=== PATIENT | male | born 1960 | race Caucasian/White ===

== ENCOUNTER 2021-02-03 00:01 | Inpatient (IN) ==
[2021-02-03 00:43] LABS: Basophils % 0.3 %; Eosinophils % 0.3 %; Hematocrit 47.4 % (37.5-50.1); Hemoglobin 13.9 g/dL (12.9-16.9); Immature Granulocytes % 0.5 % (0-4); Lymphocytes # 1.1 K/mcL (0.6-4.6); Mean Corpuscular HGB Conc 29.3 g/dL (31.6-35.5); Mean Corpuscular Hemoglobin 26.2 pg (28.0-33.3); Mean Corpuscular Volume 89.4 fL (83.0-100.0); Mean Platelet Volume 10.1 fL (9.4-12.4); Monocytes # 0.7 K/mcL (0.0-1.3); Monocytes % 11.3 %; Neutrophils # 4.6 K/mcL (1.6-8.9); Platelet Count 228 K/mcL (140-400); Red Cell Distribution Width 18.1 % (11.5-14.5); Segmented Neutrophils % 70.6 %; White Blood Count 6.5 K/mcL (4.3-11.1)
[2021-02-03 00:53] LABS: BUN/Creatinine Ratio 10 (6-26); Blood Urea Nitrogen 12 mg/dL (6-20); Calcium 8.7 mg/dL (8.6-10.3); Carbon Dioxide 35 mEq/L (23-29); Chloride 93 mEq/L (98-107); Glucose 126 mg/dL (70-105); Osmolality,Calculated 281 (280-300); Potassium 3.5 mEq/L (3.5-5.1); Sodium 135 mEq/L (136-145); eGFR For African Americans > 60 (> 60); eGFR For Non-African Americans > 60 (> 60)
[2021-02-03 00:57] LABS: Troponin I 0.06 ng/mL (< 0.04)
[2021-02-03 00:59] LABS: VBG HCO3 37 mEq/L (21-27); VBG PCO2 92 mmHg (41-51); VBG PH 7.22 pH Units (7.32-7.42); VBG PO2 246 mmHg (25-50)
[2021-02-03 02:48] LABS: VBG HCO3 37 mEq/L (21-27); VBG PCO2 87 mmHg (41-51); VBG PH 7.24 pH Units (7.32-7.42); VBG PO2 107 mmHg (25-50)
[2021-02-03] MEDS ORDERED: Isovue-370 500 ML BOTTLE IVP ONE (04:09)
[2021-02-03] MEDS ORDERED: *HR* Heparin 5,000 UNIT/ML VIAL IVP PRN ×2 (06:20)
[2021-02-03] MEDS ORDERED: *HR* Heparin 5,000 UNIT/ML VIAL IVP ONE (06:20)
[2021-02-03] MEDS: Heparin 25,000UNIT/250ML 1/2NS 25,000 UNIT/250 ML IV.SOLN IVC SCH (06:39)
[2021-02-03 06:43] LABS: White Blood Count 8.7 K/mcL (4.3-11.1)
[2021-02-03 06:44] LABS: Hematocrit 50.3 % (37.5-50.1); Hemoglobin 14.6 g/dL (12.9-16.9); Mean Corpuscular Hemoglobin 26.6 pg (28.0-33.3); Mean Corpuscular Volume 91.6 fL (83.0-100.0); Mean Platelet Volume 9.7 fL (9.4-12.4); Platelet Count 202 K/mcL (140-400); Red Blood Count 5.49 M/mcL (4.19-5.50); Red Cell Distribution Width 18.6 % (11.5-14.5)
[2021-02-03 06:51] LABS: Heparin anti-factor XA UFH 0.04 IU/mL (0.30-0.70); INR 1.2; Prothrombin Time 14.1 Seconds (9.4-12.1)
[2021-02-03 06:52] LABS: VBG HCO3 38 mEq/L (21-27); VBG PCO2 112 mmHg (41-51); VBG PH 7.14 pH Units (7.32-7.42); VBG PO2 49 mmHg (25-50)
[2021-02-03] MEDS ORDERED: Naloxone 0.4 MG/ML INJ IVP PRN (07:25)
[2021-02-03] MEDS ORDERED: Ipratropium/Albuterol Neb 3 ML IH PRN (07:28)
[2021-02-03 07:29] LABS: Adenovirus Not Detected (Not Detect); Bordetella Pertussis Not Detected (Not Detect); Chlamydophila pneumoniae Not Detected (Not Detect); Coronavirus 229E Not Detected (Not Detect); Coronavirus HKU1 Not Detected (Not Detect); Coronavirus NL63 Not Detected (Not Detect); Coronavirus OC43 Not Detected (Not Detect); Human Metapneumovirus Not Detected (Not Detect); Human Rhinovirus/Enterovirus DETECTED (Not Detect); Influenza A Subtype 2009 H1 Not Detected (Not Detect); Influenza B Not Detected (Not Detect); Mycoplasma pneumoniae Not Detected (Not Detect); Parainfluenza Virus 1 Not Detected (Not Detect); Parainfluenza Virus 2 Not Detected (Not Detect); Parainfluenza Virus 3 Not Detected (Not Detect); Parainfluenza Virus 4 Not Detected (Not Detect); Respiratory Syncytial Virus Not Detected (Not Detect); SARS-CoV-2 Not Detected (Not Detect)
[2021-02-03 07:44] LABS: ABG Base Excess 6 mEq/L (-2 to 3); ABG HCO3 42 mEq/L (21-27); ABG Oxygen Saturation 98 % (95-98); ABG PCO2 127 mmHg (35-45); ABG PH 7.12 pH Units (7.32-7.45); ABG PO2 159 mmHg (85-104); ABG TCO2 46 mEq/L (20-26); Blood Gas Pressure Support 16 cm H2O
[2021-02-03] MEDS ORDERED: Nitroglycerin 0.4 MG TAB.SUBL SL PRN (08:23)
[2021-02-03] MEDS ORDERED: Furosemide 40 MG/4 ML VIAL IVP ONE (08:24)
[2021-02-03] MEDS ORDERED: methylPREDNISolone 125 MG/2 ML VIAL IVP ONE (08:24)
[2021-02-03] MEDS ORDERED: Perflutren Lipid Microsphere 1.3 ML in 0.9 % Sodium Chloride 8.7 ML IVP PRN (08:30)
[2021-02-03] MEDS: DilTIAZem 50 MG/50 ML IV.SOLN IVC SCH ×2 (08:54→09:21)
[2021-02-03] MEDS: Metoprolol XL (24 HR) Succ 50 MG TAB.ER.24H PO SCH (08:55)
[2021-02-03] MEDS ORDERED: *HR* Dextrose 50 % in Water (Vial) 50 ML VIAL IVP PRN (09:15)
[2021-02-03] MEDS ORDERED: D5% in Water 1,000 ML IVC PRN (09:15)
[2021-02-03] MEDS ORDERED: Dextrose Gel 15 GM/37.5 ML TUBE PO PRN ×2 (09:15)
[2021-02-03 09:21] LABS: ABG Base Excess 9 mEq/L (-2 to 3); ABG HCO3 41 mEq/L (21-27); ABG Oxygen Saturation 100 % (95-98); ABG PCO2 87 mmHg (35-45); ABG PH 7.28 pH Units (7.32-7.45); ABG PO2 313 mmHg (85-104); ABG TCO2 43 mEq/L (20-26); Blood Gas VT 500 cc
[2021-02-03] MEDS ORDERED: Lidocaine Viscous Oral Soln 15 ML SOLUTION ONE (09:41)
[2021-02-03] MEDS: Budesonide/Formoterol 160/4.5 1 PUFF INH IH SCH ×2 (11:47→23:04)
[2021-02-03] MEDS: Insulin LISPRO 300 UNITS/3 ML VIAL SUBQ SCH ×3 (12:52→21:00)
[2021-02-03] MEDS: Azithromycin 250 MG TABLET PO SCH (12:53)
[2021-02-03] MEDS: predniSONE 20 MG TABLET PO SCH (17:49)
[2021-02-04] MEDS: Heparin 25,000UNIT/250ML 1/2NS 25,000 UNIT/250 ML IV.SOLN IVC SCH ×2 (00:48→17:59)
[2021-02-04 01:38] LABS: Basophils % 0.1 %; Hematocrit 46.1 % (37.5-50.1); Hemoglobin 13.8 g/dL (12.9-16.9); Immature Granulocytes % 0.4 % (0-4); Mean Corpuscular HGB Conc 29.9 g/dL (31.6-35.5); Mean Corpuscular Hemoglobin 26.9 pg (28.0-33.3); Mean Corpuscular Volume 89.9 fL (83.0-100.0); Monocytes # 0.6 K/mcL (0.0-1.3); Monocytes % 5.8 %; Neutrophils # 8.9 K/mcL (1.6-8.9); Platelet Count 216 K/mcL (140-400); Red Blood Count 5.13 M/mcL (4.19-5.50); Segmented Neutrophils % 84.7 %; White Blood Count 10.5 K/mcL (4.3-11.1)
[2021-02-04 02:00] LABS: BUN/Creatinine Ratio 23 (6-26); Blood Urea Nitrogen 25 mg/dL (6-20); Calcium 8.8 mg/dL (8.6-10.3); Carbon Dioxide 36 mEq/L (23-29); Chloride 92 mEq/L (98-107); Glucose 132 mg/dL (70-105); Osmolality,Calculated 284 (280-300); Potassium 4.2 mEq/L (3.5-5.1); Sodium 134 mEq/L (136-145); eGFR For African Americans > 60 (> 60); eGFR For Non-African Americans > 60 (> 60)
[2021-02-04] MEDS: Metoprolol XL (24 HR) Succ 50 MG TAB.ER.24H PO SCH (07:33)
[2021-02-04] MEDS: predniSONE 20 MG TABLET PO SCH (07:33)
[2021-02-04] MEDS: Budesonide/Formoterol 160/4.5 1 PUFF INH IH SCH ×2 (08:00→20:06)
[2021-02-04] MEDS: ALPRAZolam 1 MG TABLET PO PRN ×2 (08:16→21:41)
[2021-02-04] MEDS: Insulin LISPRO 300 UNITS/3 ML VIAL SUBQ SCH ×4 (08:16→21:02)
[2021-02-04] MEDS: Furosemide 20 MG/2 ML VIAL IVP SCH ×2 (10:06→19:40)
[2021-02-04] MEDS: Azithromycin 250 MG TABLET PO SCH (12:23)
[2021-02-04] MEDS ORDERED: *HR* Heparin 5,000 UNIT/ML VIAL IVP PRN ×2 (16:02)
[2021-02-04] MEDS ORDERED: *HR* Rivaroxaban 10 MG TABLET PO SCH (17:00)
[2021-02-04] MEDS: MethylPREDNISolone 40 MG/ML VIAL IVP SCH ×2 (17:36→22:55)
[2021-02-04 19:04] LABS: Hemoglobin 13.4 g/dL (12.9-16.9); Mean Corpuscular HGB Conc 29.8 g/dL (31.6-35.5); Mean Corpuscular Hemoglobin 26.3 pg (28.0-33.3); Mean Corpuscular Volume 88.2 fL (83.0-100.0); Mean Platelet Volume 10.4 fL (9.4-12.4); Platelet Count 201 K/mcL (140-400); Red Cell Distribution Width 18.2 % (11.5-14.5); White Blood Count 8.6 K/mcL (4.3-11.1)
[2021-02-04 19:10] LABS: Heparin anti-factor XA UFH 0.19 IU/mL (0.30-0.70)
[2021-02-04 19:11] LABS: INR 1.2; Prothrombin Time 13.6 Seconds (9.4-12.1)
[2021-02-04] MEDS: Metoprolol 100 MG TABLET PO SCH (19:40)
[2021-02-05 01:45] LABS: Basophils % 0.1 %; Hematocrit 45.5 % (37.5-50.1); Hemoglobin 13.4 g/dL (12.9-16.9); Immature Granulocytes % 0.7 % (0-4); Lymphocytes # 0.8 K/mcL (0.6-4.6); Lymphocytes % 11.5 %; Mean Corpuscular HGB Conc 29.5 g/dL (31.6-35.5); Mean Corpuscular Hemoglobin 26.2 pg (28.0-33.3); Mean Corpuscular Volume 88.9 fL (83.0-100.0); Mean Platelet Volume 10.2 fL (9.4-12.4); Monocytes # 0.3 K/mcL (0.0-1.3); Monocytes % 4.2 %; Platelet Count 221 K/mcL (140-400); Red Blood Count 5.12 M/mcL (4.19-5.50); Red Cell Distribution Width 18.2 % (11.5-14.5); Segmented Neutrophils % 83.5 %; White Blood Count 7.2 K/mcL (4.3-11.1)
[2021-02-05 01:50] LABS: BUN/Creatinine Ratio 41 (6-26); Blood Urea Nitrogen 37 mg/dL (6-20); Calcium 9.2 mg/dL (8.6-10.3); Carbon Dioxide 37 mEq/L (23-29); Chloride 91 mEq/L (98-107); Glucose 128 mg/dL (70-105); Magnesium 1.9 mg/dL (1.6-2.6); Osmolality,Calculated 286 (280-300); Phosphorous 2.8 mg/dL (2.7-4.5); Potassium 4.2 mEq/L (3.5-5.1); Sodium 133 mEq/L (136-145); eGFR For African Americans > 60 (> 60); eGFR For Non-African Americans > 60 (> 60)
[2021-02-05] MEDS: Budesonide/Formoterol 160/4.5 1 PUFF INH IH SCH ×2 (07:38→20:04)
[2021-02-05] MEDS: Metoprolol 100 MG TABLET PO SCH (08:05)
[2021-02-05] MEDS: Furosemide 20 MG/2 ML VIAL IVP SCH ×2 (08:05→21:18)
[2021-02-05] MEDS: lisinopriL 20 MG TABLET PO SCH (08:05)
[2021-02-05] MEDS: amLODIPine 5 MG TABLET PO SCH (08:05)
[2021-02-05] MEDS: Insulin LISPRO 300 UNITS/3 ML VIAL SUBQ SCH ×4 (08:06→21:23)
[2021-02-05] MEDS: MethylPREDNISolone 40 MG/ML VIAL IVP SCH ×2 (08:06→17:20)
[2021-02-05] MEDS: ALPRAZolam 1 MG TABLET PO PRN ×2 (08:16→22:03)
[2021-02-05 08:52] LABS: ABG Base Excess 11 mEq/L (-2 to 3); ABG HCO3 41 mEq/L (21-27); ABG Oxygen Saturation 86 % (95-98); ABG PCO2 75 mmHg (35-45); ABG PH 7.35 pH Units (7.32-7.45); ABG PO2 58 mmHg (85-104); ABG TCO2 44 mEq/L (20-26)
[2021-02-05] MEDS: Azithromycin 250 MG TABLET PO SCH (10:18)
[2021-02-05] MEDS: Heparin 25,000UNIT/250ML 1/2NS 25,000 UNIT/250 ML IV.SOLN IVC SCH (10:18)
[2021-02-05] MEDS: Metoprolol XL (24 HR) Succ 50 MG TAB.ER.24H PO SCH ×2 (10:36→21:18)
[2021-02-05] MEDS: Aspirin Enteric Coated 81 MG Tablet PO SCH (12:26)
[2021-02-05 13:10] LABS: Albumin 3.9 g/dL (3.5-5.7); Albumin/Globulin Ratio 1.1 (1.1-2.2); Bilirubin,Direct 0.2 mg/dL (0.0-0.2); Bilirubin,Indirect 0.6 mg/dL (0.0-1.0); Bilirubin,Total 0.8 mg/dL (0.3-1.0); Globulin 3.6 g/dL (2.4-3.5); Total Protein 7.5 g/dL (6.4-8.9)
[2021-02-05] MEDS ORDERED: Haloperidol Lactate 5 MG/ML VIAL IVP ONE (15:52)
[2021-02-05 16:13] LABS: ABG Base Excess 11 mEq/L (-2 to 3); ABG HCO3 40 mEq/L (21-27); ABG Oxygen Saturation 90 % (95-98); ABG PCO2 69 mmHg (35-45); ABG PH 7.37 pH Units (7.32-7.45); ABG PO2 63 mmHg (85-104); ABG TCO2 42 mEq/L (20-26)
[2021-02-05] MEDS ORDERED: QUEtiapine Fumarate 25 MG TABLET PO ONE (23:40)
[2021-02-06 02:05] LABS: BUN/Creatinine Ratio 43 (6-26); Blood Urea Nitrogen 34 mg/dL (6-20); Calcium 9.1 mg/dL (8.6-10.3); Carbon Dioxide 39 mEq/L (23-29); Chloride 94 mEq/L (98-107); Glucose 122 mg/dL (70-105); Magnesium 1.6 mg/dL (1.6-2.6); Osmolality,Calculated 297 (280-300); Phosphorous 2.1 mg/dL (2.7-4.5); Sodium 139 mEq/L (136-145); eGFR For African Americans > 60 (> 60); eGFR For Non-African Americans > 60 (> 60)
[2021-02-06] MEDS ORDERED: Haloperidol Lactate 5 MG/ML VIAL IVP ONE (02:36)
[2021-02-06] MEDS ORDERED: Haloperidol Lactate 5 MG/ML VIAL IM ONE (02:48)
[2021-02-06] MEDS: Heparin 25,000UNIT/250ML 1/2NS 25,000 UNIT/250 ML IV.SOLN IVC SCH ×2 (04:47→20:00)
[2021-02-06] MEDS: Metoprolol XL (24 HR) Succ 50 MG TAB.ER.24H PO SCH ×2 (06:33→20:26)
[2021-02-06] MEDS: MethylPREDNISolone 40 MG/ML VIAL IVP SCH ×2 (06:33→18:26)
[2021-02-06] MEDS: Insulin LISPRO 300 UNITS/3 ML VIAL SUBQ SCH ×4 (07:20→20:27)
[2021-02-06] MEDS: Budesonide/Formoterol 160/4.5 1 PUFF INH IH SCH ×2 (07:40→20:21)
[2021-02-06] MEDS ORDERED: *HR* Metoprolol 5 MG/5 ML VIAL IVP ONE (07:42)
[2021-02-06] MEDS: Furosemide 20 MG/2 ML VIAL IVP SCH ×2 (07:51→20:25)
[2021-02-06] MEDS: amLODIPine 5 MG TABLET PO SCH (07:52)
[2021-02-06] MEDS: lisinopriL 20 MG TABLET PO SCH (07:52)
[2021-02-06] MEDS: Aspirin Enteric Coated 81 MG Tablet PO SCH (07:52)
[2021-02-06] MEDS ORDERED: 0.9 % Sodium Chloride 500 ML IV ONE (08:06)
[2021-02-06 08:34] LABS: Thyroid Stimulating Hormone 1.195 mcIU/mL (0.340-5.600)
[2021-02-06] MEDS ORDERED: ALPRAZolam 1 MG TABLET PO SCH (09:00)
[2021-02-06] MEDS: DilTIAZem 50 MG/50 ML IV.SOLN IVC SCH ×3 (09:24→18:00)
[2021-02-06] MEDS: Azithromycin 250 MG TABLET PO SCH (12:20)
[2021-02-06] MEDS ORDERED: *HR* LORazepam 2 MG/ML VIAL IVP PRN ×3 (12:35)
[2021-02-06] MEDS: DilTIAZem CD (24hr) 120 MG CAP.ER.24H PO SCH (14:42)
[2021-02-06] MEDS: ALPRAZolam 1 MG TABLET PO SCH ×2 (14:42→20:26)
[2021-02-07 01:21] LABS: Hematocrit 47.8 % (37.5-50.1); Hemoglobin 14.8 g/dL (12.9-16.9); Mean Corpuscular Hemoglobin 26.7 pg (28.0-33.3); Mean Corpuscular Volume 86.1 fL (83.0-100.0); Mean Platelet Volume 10.3 fL (9.4-12.4); Platelet Count 242 K/mcL (140-400); Red Blood Count 5.55 M/mcL (4.19-5.50); Red Cell Distribution Width 18.5 % (11.5-14.5); White Blood Count 5.3 K/mcL (4.3-11.1)
[2021-02-07 01:40] LABS: BUN/Creatinine Ratio 37 (6-26); Blood Urea Nitrogen 29 mg/dL (6-20); Calcium 9.2 mg/dL (8.6-10.3); Carbon Dioxide 39 mEq/L (23-29); Chloride 92 mEq/L (98-107); Glucose 217 mg/dL (70-105); Osmolality,Calculated 296 (280-300); Phosphorous 2.5 mg/dL (2.7-4.5); Potassium 3.7 mEq/L (3.5-5.1); Sodium 137 mEq/L (136-145); eGFR For African Americans > 60 (> 60); eGFR For Non-African Americans > 60 (> 60)
[2021-02-07] MEDS ORDERED: *HR* Metoprolol 5 MG/5 ML VIAL IVP ONE (03:07)
[2021-02-07] MEDS: MethylPREDNISolone 40 MG/ML VIAL IVP SCH ×2 (06:27→19:07)
[2021-02-07] MEDS: Budesonide/Formoterol 160/4.5 1 PUFF INH IH SCH ×2 (07:33→19:53)
[2021-02-07] MEDS: Furosemide 20 MG/2 ML VIAL IVP SCH ×2 (08:38→19:37)
[2021-02-07] MEDS: hydrALAZINE 25 MG TABLET PO SCH ×3 (08:39→23:52)
[2021-02-07] MEDS: Aspirin Enteric Coated 81 MG Tablet PO SCH (08:39)
[2021-02-07] MEDS: Metoprolol XL (24 HR) Succ 50 MG TAB.ER.24H PO SCH ×2 (08:40→19:37)
[2021-02-07] MEDS: ALPRAZolam 1 MG TABLET PO SCH ×3 (08:40→19:37)
[2021-02-07] MEDS: DilTIAZem CD (24hr) 120 MG CAP.ER.24H PO SCH (08:40)
[2021-02-07] MEDS: lisinopriL 20 MG TABLET PO SCH (08:40)
[2021-02-07] MEDS: amLODIPine 5 MG TABLET PO SCH (08:41)
[2021-02-07] MEDS: Insulin LISPRO 300 UNITS/3 ML VIAL SUBQ SCH ×4 (09:14→20:32)
[2021-02-07] MEDS ORDERED: Perflutren Lipid Microsphere 1.3 ML in 0.9 % Sodium Chloride 8.7 ML IVP PRN (09:53)
[2021-02-07] MEDS ORDERED: DilTIAZem CD (24hr) 240 MG CAP.ER.24H PO SCH (10:00)
[2021-02-07] MEDS ORDERED: DilTIAZem CD (24hr) 120 MG CAP.ER.24H PO ONE (10:30)
[2021-02-07] MEDS: Azithromycin 250 MG TABLET PO SCH (10:36)
[2021-02-07] MEDS: Heparin 25,000UNIT/250ML 1/2NS 25,000 UNIT/250 ML IV.SOLN IVC SCH (14:39)
[2021-02-08] MEDS: MethylPREDNISolone 40 MG/ML VIAL IVP SCH ×2 (05:22→17:41)
[2021-02-08 06:51] LABS: Hematocrit 53.1 % (37.5-50.1); Hemoglobin 16.3 g/dL (12.9-16.9); Mean Corpuscular HGB Conc 30.7 g/dL (31.6-35.5); Mean Corpuscular Hemoglobin 26.1 pg (28.0-33.3); Mean Platelet Volume 10.1 fL (9.4-12.4); Platelet Count 227 K/mcL (140-400); Red Blood Count 6.25 M/mcL (4.19-5.50); Red Cell Distribution Width 18.6 % (11.5-14.5); White Blood Count 7.1 K/mcL (4.3-11.1)
[2021-02-08] MEDS: Heparin 25,000UNIT/250ML 1/2NS 25,000 UNIT/250 ML IV.SOLN IVC SCH (07:29)
[2021-02-08 07:35] LABS: BUN/Creatinine Ratio 43 (6-26); Blood Urea Nitrogen 31 mg/dL (6-20); Calcium 9.4 mg/dL (8.6-10.3); Carbon Dioxide 40 mEq/L (23-29); Chloride 88 mEq/L (98-107); Glucose 141 mg/dL (70-105); Magnesium 1.7 mg/dL (1.6-2.6); Osmolality,Calculated 289 (280-300); Phosphorous 3.5 mg/dL (2.7-4.5); Potassium 3.4 mEq/L (3.5-5.1); Sodium 135 mEq/L (136-145); eGFR For African Americans > 60 (> 60); eGFR For Non-African Americans > 60 (> 60)
[2021-02-08] MEDS: Aspirin Enteric Coated 81 MG Tablet PO SCH (07:54)
[2021-02-08] MEDS: Metoprolol XL (24 HR) Succ 50 MG TAB.ER.24H PO SCH ×2 (07:54→19:57)
[2021-02-08] MEDS: lisinopriL 20 MG TABLET PO SCH (07:54)
[2021-02-08] MEDS: DilTIAZem CD (24hr) 240 MG CAP.ER.24H PO SCH (07:54)
[2021-02-08] MEDS: hydrALAZINE 25 MG TABLET PO SCH ×2 (07:55→16:04)
[2021-02-08] MEDS: Furosemide 20 MG/2 ML VIAL IVP SCH (07:55)
[2021-02-08] MEDS: ALPRAZolam 1 MG TABLET PO SCH ×3 (07:55→19:57)
[2021-02-08] MEDS: Insulin LISPRO 300 UNITS/3 ML VIAL SUBQ SCH ×4 (08:03→20:07)
[2021-02-08] MEDS: Budesonide/Formoterol 160/4.5 1 PUFF INH IH SCH ×2 (09:29→20:18)
[2021-02-08] MEDS: Apixaban 5 MG TABLET PO SCH ×2 (11:05→19:57)
[2021-02-08] MEDS: Azithromycin 250 MG TABLET PO SCH (11:05)
[2021-02-08] MEDS ORDERED: Metoprolol XL (24 HR) Succ 50 MG TAB.ER.24H PO ONE (12:35)
[2021-02-09] MEDS: hydrALAZINE 25 MG TABLET PO SCH ×3 (00:20→16:30)
[2021-02-09 01:58] LABS: Basophils % 0.5 %; Hematocrit 52.8 % (37.5-50.1); Hemoglobin 16.3 g/dL (12.9-16.9); Immature Granulocytes % 1.2 % (0-4); Lymphocytes # 1.1 K/mcL (0.6-4.6); Lymphocytes % 13.2 %; Mean Corpuscular HGB Conc 30.9 g/dL (31.6-35.5); Mean Corpuscular Hemoglobin 26.1 pg (28.0-33.3); Mean Corpuscular Volume 84.5 fL (83.0-100.0); Monocytes # 0.5 K/mcL (0.0-1.3); Monocytes % 6.3 %; Neutrophils # 6.4 K/mcL (1.6-8.9); Platelet Count 219 K/mcL (140-400); Red Blood Count 6.25 M/mcL (4.19-5.50); Red Cell Distribution Width 18.6 % (11.5-14.5); Segmented Neutrophils % 78.8 %; White Blood Count 8.1 K/mcL (4.3-11.1)
[2021-02-09 02:14] LABS: BUN/Creatinine Ratio 41 (6-26); Blood Urea Nitrogen 34 mg/dL (6-20); Calcium 8.9 mg/dL (8.6-10.3); Carbon Dioxide 39 mEq/L (23-29); Chloride 89 mEq/L (98-107); Glucose 162 mg/dL (70-105); Osmolality,Calculated 287 (280-300); Potassium 3.7 mEq/L (3.5-5.1); Sodium 133 mEq/L (136-145); eGFR For African Americans > 60 (> 60); eGFR For Non-African Americans > 60 (> 60)
[2021-02-09] MEDS: MethylPREDNISolone 40 MG/ML VIAL IVP SCH (04:56)
[2021-02-09] MEDS: Budesonide/Formoterol 160/4.5 1 PUFF INH IH SCH ×2 (07:54→20:12)
[2021-02-09] MEDS: Insulin LISPRO 300 UNITS/3 ML VIAL SUBQ SCH ×4 (08:15→20:40)
[2021-02-09] MEDS: Metoprolol XL (24 HR) Succ 50 MG TAB.ER.24H PO SCH ×2 (08:16→20:43)
[2021-02-09] MEDS: ALPRAZolam 1 MG TABLET PO SCH ×3 (08:16→20:43)
[2021-02-09] MEDS: Furosemide 40 MG TABLET PO SCH (08:17)
[2021-02-09] MEDS: lisinopriL 20 MG TABLET PO SCH (08:17)
[2021-02-09] MEDS: Aspirin Enteric Coated 81 MG Tablet PO SCH (08:17)
[2021-02-09] MEDS: DilTIAZem CD (24hr) 240 MG CAP.ER.24H PO SCH (08:17)
[2021-02-09] MEDS: Apixaban 5 MG TABLET PO SCH ×2 (08:17→20:43)
[2021-02-09] MEDS: Azithromycin 250 MG TABLET PO SCH (11:56)
[2021-02-10] MEDS: hydrALAZINE 25 MG TABLET PO SCH ×3 (00:16→16:17)
[2021-02-10 05:57] LABS: Basophils % 0.3 %; Eosinophils % 0.2 %; Hematocrit 54.1 % (37.5-50.1); Hemoglobin 16.7 g/dL (12.9-16.9); Immature Granulocytes % 1.1 % (0-4); Lymphocytes # 2.4 K/mcL (0.6-4.6); Lymphocytes % 20.9 %; Mean Corpuscular HGB Conc 30.9 g/dL (31.6-35.5); Mean Corpuscular Volume 84.3 fL (83.0-100.0); Mean Platelet Volume 10.1 fL (9.4-12.4); Monocytes # 1.2 K/mcL (0.0-1.3); Monocytes % 10.8 %; Neutrophils # 7.6 K/mcL (1.6-8.9); Platelet Count 219 K/mcL (140-400); Red Blood Count 6.42 M/mcL (4.19-5.50); Red Cell Distribution Width 18.9 % (11.5-14.5); Segmented Neutrophils % 66.7 %; White Blood Count 11.4 K/mcL (4.3-11.1)
[2021-02-10 06:17] LABS: BUN/Creatinine Ratio 37 (6-26); Blood Urea Nitrogen 31 mg/dL (6-20); Calcium 8.9 mg/dL (8.6-10.3); Carbon Dioxide 36 mEq/L (23-29); Chloride 93 mEq/L (98-107); Glucose 115 mg/dL (70-105); Osmolality,Calculated 285 (280-300); Potassium 3.6 mEq/L (3.5-5.1); Sodium 134 mEq/L (136-145); eGFR For African Americans > 60 (> 60); eGFR For Non-African Americans > 60 (> 60)
[2021-02-10] MEDS: Budesonide/Formoterol 160/4.5 1 PUFF INH IH SCH ×2 (07:27→20:18)
[2021-02-10] MEDS: Insulin LISPRO 300 UNITS/3 ML VIAL SUBQ SCH ×4 (07:42→20:36)
[2021-02-10] MEDS: lisinopriL 20 MG TABLET PO SCH (09:30)
[2021-02-10] MEDS: DilTIAZem CD (24hr) 240 MG CAP.ER.24H PO SCH (09:31)
[2021-02-10] MEDS: ALPRAZolam 1 MG TABLET PO SCH ×3 (09:31→20:30)
[2021-02-10] MEDS: predniSONE 20 MG TABLET PO SCH (09:31)
[2021-02-10] MEDS: Apixaban 5 MG TABLET PO SCH ×2 (09:31→20:29)
[2021-02-10] MEDS: Aspirin Enteric Coated 81 MG Tablet PO SCH (09:31)
[2021-02-10] MEDS: Metoprolol XL (24 HR) Succ 50 MG TAB.ER.24H PO SCH ×2 (09:31→20:30)
[2021-02-10] MEDS: Furosemide 40 MG TABLET PO SCH (09:32)
[2021-02-10] MEDS: Azithromycin 250 MG TABLET PO SCH (11:33)
[2021-02-11] MEDS: hydrALAZINE 25 MG TABLET PO SCH ×2 (00:09→09:48)
[2021-02-11 05:07] LABS: Basophils % 0.3 %; Eosinophils % 0.3 %; Hematocrit 54.6 % (37.5-50.1); Hemoglobin 17.5 g/dL (12.9-16.9); Immature Granulocytes % 1.3 % (0-4); Lymphocytes # 3.4 K/mcL (0.6-4.6); Lymphocytes % 37.3 %; Mean Corpuscular HGB Conc 32.1 g/dL (31.6-35.5); Mean Corpuscular Hemoglobin 26.8 pg (28.0-33.3); Mean Corpuscular Volume 83.7 fL (83.0-100.0); Mean Platelet Volume 10.4 fL (9.4-12.4); Monocytes % 10.6 %; Neutrophils # 4.6 K/mcL (1.6-8.9); Platelet Count 189 K/mcL (140-400); Red Blood Count 6.52 M/mcL (4.19-5.50); Segmented Neutrophils % 50.2 %; White Blood Count 9.2 K/mcL (4.3-11.1)
[2021-02-11 05:29] LABS: BUN/Creatinine Ratio 32 (6-26); Blood Urea Nitrogen 27 mg/dL (6-20); Calcium 8.6 mg/dL (8.6-10.3); Carbon Dioxide 36 mEq/L (23-29); Chloride 93 mEq/L (98-107); Glucose 103 mg/dL (70-105); Osmolality,Calculated 285 (280-300); Potassium 3.7 mEq/L (3.5-5.1); Sodium 135 mEq/L (136-145); eGFR For African Americans > 60 (> 60); eGFR For Non-African Americans > 60 (> 60)
[2021-02-11] MEDS: Insulin LISPRO 300 UNITS/3 ML VIAL SUBQ SCH ×2 (07:01→11:26)
[2021-02-11] MEDS: Budesonide/Formoterol 160/4.5 1 PUFF INH IH SCH (07:31)
[2021-02-11] MEDS: ALPRAZolam 1 MG TABLET PO SCH (09:47)
[2021-02-11] MEDS: Apixaban 5 MG TABLET PO SCH (09:48)
[2021-02-11] MEDS: Azithromycin 250 MG TABLET PO SCH (09:48)
[2021-02-11] MEDS: Aspirin Enteric Coated 81 MG Tablet PO SCH (09:48)
[2021-02-11] MEDS: Furosemide 40 MG TABLET PO SCH (09:48)
[2021-02-11] MEDS: predniSONE 20 MG TABLET PO SCH (09:48)
[2021-02-11] MEDS: DilTIAZem CD (24hr) 240 MG CAP.ER.24H PO SCH (09:48)
[2021-02-11] MEDS: lisinopriL 20 MG TABLET PO SCH (09:48)
[2021-02-11] MEDS: Metoprolol XL (24 HR) Succ 50 MG TAB.ER.24H PO SCH (09:48)
[2021-02-11 11:14] VITALS: BP 110/72
== END 2021-02-11 15:47 | disposition home or self-care (01) | DRG 917 ==
LOC: 2NNU 00:01 → EMEROOARM 00:01 → 2NNU 06:56 → SUATTDRO 09:35 → 2ANU 02-09 10:58
PROVIDERS: ADMIT Internal Medicine; ATTEND Internal Medicine

== ENCOUNTER 2021-02-19 20:02 | Observation (INO) ==
[2021-02-19 21:25] LABS: Basophils % 0.1 %; Eosinophils # 0.1 K/mcL (0.0-0.6); Eosinophils % 0.9 %; Hematocrit 45.2 % (37.5-50.1); Hemoglobin 13.5 g/dL (12.9-16.9); Immature Granulocytes % 0.1 % (0-4); Lymphocytes # 2.3 K/mcL (0.6-4.6); Lymphocytes % 28.5 %; Mean Corpuscular HGB Conc 29.9 g/dL (31.6-35.5); Mean Corpuscular Hemoglobin 26.5 pg (28.0-33.3); Mean Corpuscular Volume 88.8 fL (83.0-100.0); Monocytes # 1.1 K/mcL (0.0-1.3); Monocytes % 13.5 %; Neutrophils # 4.6 K/mcL (1.6-8.9); Platelet Count 214 K/mcL (140-400); Red Blood Count 5.09 M/mcL (4.19-5.50); Red Cell Distribution Width 18.3 % (11.5-14.5); Segmented Neutrophils % 56.9 %; White Blood Count 8.1 K/mcL (4.3-11.1)
[2021-02-19 21:29] LABS: VBG HCO3 32 mEq/L (21-27); VBG PCO2 64 mmHg (41-51); VBG PH 7.31 pH Units (7.32-7.42); VBG PO2 72 mmHg (25-50)
[2021-02-19 21:32] LABS: INR 1.2; Prothrombin Time 13.9 Seconds (9.4-12.1)
[2021-02-19 21:35] LABS: Activated Partial Thrombo Time 33.1 Seconds (26.0-36.0)
[2021-02-19 21:46] LABS: BUN/Creatinine Ratio 18 (6-26); Blood Urea Nitrogen 20 mg/dL (6-20); Calcium 8.6 mg/dL (8.6-10.3); Carbon Dioxide 33 mEq/L (23-29); Chloride 97 mEq/L (98-107); Glucose 122 mg/dL (70-105); Osmolality,Calculated 290 (280-300); Potassium 4.4 mEq/L (3.5-5.1); Sodium 138 mEq/L (136-145); eGFR For African Americans > 60 (> 60); eGFR For Non-African Americans > 60 (> 60)
[2021-02-19 21:47] LABS: Troponin I < 0.03 ng/mL (< 0.04)
[2021-02-19] MEDS ORDERED: Furosemide 80 MG in 0.9 % Sodium Chloride 50 ML IVPB ONE (22:52)
[2021-02-19] MEDS ORDERED: Lactulose Oral Soln 20 GM/30 ML UDC PO ONE (22:52)
[2021-02-19] MEDS ORDERED: Ondansetron 4 MG/2 ML VIAL IVP PRN (23:59)
[2021-02-19] MEDS ORDERED: Naloxone 0.4 MG/ML INJ IVP PRN (23:59)
[2021-02-20] MEDS: Nicotine 21 MG PATCH.TD24 TD SCH ×2 (00:03→08:19)
[2021-02-20 03:03] LABS: Hematocrit 44.5 % (37.5-50.1); Hemoglobin 13.2 g/dL (12.9-16.9); Mean Corpuscular HGB Conc 29.7 g/dL (31.6-35.5); Mean Corpuscular Hemoglobin 26.3 pg (28.0-33.3); Mean Corpuscular Volume 88.6 fL (83.0-100.0); Mean Platelet Volume 9.7 fL (9.4-12.4); Platelet Count 182 K/mcL (140-400); Red Blood Count 5.02 M/mcL (4.19-5.50); Red Cell Distribution Width 18.5 % (11.5-14.5); White Blood Count 7.3 K/mcL (4.3-11.1)
[2021-02-20 03:21] LABS: BUN/Creatinine Ratio 17 (6-26); Blood Urea Nitrogen 18 mg/dL (6-20); Calcium 8.2 mg/dL (8.6-10.3); Carbon Dioxide 32 mEq/L (23-29); Chloride 101 mEq/L (98-107); Glucose 106 mg/dL (70-105); Osmolality,Calculated 286 (280-300); Potassium 3.7 mEq/L (3.5-5.1); Sodium 137 mEq/L (136-145); eGFR For African Americans > 60 (> 60); eGFR For Non-African Americans > 60 (> 60)
[2021-02-20] MEDS ORDERED: Dextrose Gel 15 GM/37.5 ML TUBE PO PRN ×2 (05:41)
[2021-02-20] MEDS ORDERED: D5% in Water 1,000 ML IVC PRN (05:41)
[2021-02-20] MEDS ORDERED: *HR* Dextrose 50 % in Water (Vial) 50 ML VIAL IVP PRN (05:41)
[2021-02-20 05:56] LABS: Alanine Aminotransferase 228 Units/L (7-52); Albumin 3.4 g/dL (3.5-5.7); Albumin/Globulin Ratio 1.3 (1.1-2.2); Alkaline Phosphatase 42 Units/L (34-104); Aspartate Amino Transferase 73 Units/L (13-39); Bilirubin,Direct 0.2 mg/dL (0.0-0.2); Bilirubin,Indirect 0.3 mg/dL (0.0-1.0); Bilirubin,Total 0.5 mg/dL (0.3-1.0); Globulin 2.6 g/dL (2.4-3.5)
[2021-02-20] MEDS ORDERED: Insulin LISPRO 300 UNITS/3 ML VIAL SUBQ SCH (07:30)
[2021-02-20 07:47] VITALS: BP 137/81
[2021-02-20] MEDS ORDERED: Lactulose Oral Soln 20 GM/30 ML UDC PO SCH (09:00)
== END 2021-02-20 10:21 | disposition home or self-care (01) ==
LOC: 3ANU 20:02 → EMEROOARM 20:02 → SUATTDRO 23:40 → 3ANU 02-20 00:25
PROVIDERS: ADMIT Internal Medicine; ATTEND Pharmacist

== ENCOUNTER 2021-03-07 09:59 | Inpatient (IN) ==
[2021-03-07] MEDS ORDERED: Nitroglycerin 0.4 MG TAB.SUBL SL STA (10:10)
[2021-03-07] MEDS ORDERED: Ipratropium/Albuterol Neb 3 ML IH ONE (10:10)
[2021-03-07] MEDS ORDERED: Furosemide 40 MG/4 ML VIAL IVP ONE (10:10)
[2021-03-07 10:41] LABS: Basophils % 0.5 %; Segmented Neutrophils % 50.9 %
[2021-03-07 10:43] LABS: Eosinophils % 0.7 %; Hemoglobin 13.2 g/dL (12.9-16.9); Immature Granulocytes % 1.8 % (0-4); Lymphocytes # 2.1 K/mcL (0.6-4.6); Mean Corpuscular HGB Conc 29.3 g/dL (31.6-35.5); Mean Corpuscular Hemoglobin 27.4 pg (28.0-33.3); Mean Corpuscular Volume 93.6 fL (83.0-100.0); Monocytes # 0.7 K/mcL (0.0-1.3); Monocytes % 12.1 %; Neutrophils # 3.1 K/mcL (1.6-8.9); Platelet Count 189 K/mcL (140-400); Red Blood Count 4.81 M/mcL (4.19-5.50); Red Cell Distribution Width 17.5 % (11.5-14.5); White Blood Count 6.1 K/mcL (4.3-11.1)
[2021-03-07 11:11] LABS: BUN/Creatinine Ratio 15 (6-26); Blood Urea Nitrogen 11 mg/dL (6-20); Calcium 8.9 mg/dL (8.6-10.3); Carbon Dioxide 42 mEq/L (23-29); Chloride 96 mEq/L (98-107); Glucose 116 mg/dL (70-105); Osmolality,Calculated 284 (280-300); Potassium 4.5 mEq/L (3.5-5.1); Sodium 137 mEq/L (136-145); Troponin I < 0.03 ng/mL (< 0.04); eGFR For African Americans > 60 (> 60); eGFR For Non-African Americans > 60 (> 60)
[2021-03-07 11:19] LABS: VBG HCO3 45 mEq/L (21-27); VBG PCO2 103 mmHg (41-51); VBG PH 7.25 pH Units (7.32-7.42); VBG PO2 79 mmHg (25-50)
[2021-03-07 11:34] LABS: Platelet Estimate Normal (Normal)
[2021-03-07] MEDS ORDERED: methylPREDNISolone 125 MG/2 ML VIAL IVP ONE (13:31)
[2021-03-07] MEDS ORDERED: Acetaminophen 325 MG TABLET PO PRN (13:38)
[2021-03-07] MEDS ORDERED: Ondansetron ODT 4 MG TAB.RAPDIS SL PRN (13:38)
[2021-03-07] MEDS ORDERED: Naloxone 0.4 MG/ML INJ IVP PRN (13:38)
[2021-03-07 14:52] LABS: ABG Base Excess 16 mEq/L (-2 to 3); ABG HCO3 49 mEq/L (21-27); ABG Oxygen Saturation 89 % (95-98); ABG PCO2 103 mmHg (35-45); ABG PH 7.28 pH Units (7.32-7.45); ABG PO2 69 mmHg (85-104); ABG TCO2 > 50 mEq/L (20-26); Blood Gas Modality AVAPS; Blood Gas VT 550 cc
[2021-03-07] MEDS: Ipratropium/Albuterol Neb 3 ML IH SCH ×3 (15:03→23:22)
[2021-03-07] MEDS ORDERED: D5% in Water 1,000 ML IVC PRN (15:09)
[2021-03-07] MEDS ORDERED: Dextrose Gel 15 GM/37.5 ML TUBE PO PRN ×2 (15:09)
[2021-03-07] MEDS ORDERED: *HR* Dextrose 50 % in Water (Vial) 50 ML VIAL IVP PRN (15:09)
[2021-03-07 15:56] LABS: Adenovirus Not Detected (Not Detect); Bordetella Pertussis Not Detected (Not Detect); Chlamydophila pneumoniae Not Detected (Not Detect); Coronavirus 229E Not Detected (Not Detect); Coronavirus HKU1 Not Detected (Not Detect); Coronavirus NL63 Not Detected (Not Detect); Coronavirus OC43 Not Detected (Not Detect); Human Metapneumovirus Not Detected (Not Detect); Human Rhinovirus/Enterovirus Not Detected (Not Detect); Influenza A Subtype 2009 H1 Not Detected (Not Detect); Influenza B Not Detected (Not Detect); Mycoplasma pneumoniae Not Detected (Not Detect); Parainfluenza Virus 1 Not Detected (Not Detect); Parainfluenza Virus 2 Not Detected (Not Detect); Parainfluenza Virus 3 Not Detected (Not Detect); Parainfluenza Virus 4 Not Detected (Not Detect); Respiratory Syncytial Virus Not Detected (Not Detect); SARS-CoV-2 Not Detected (Not Detect)
[2021-03-07] MEDS: Furosemide 40 MG/4 ML VIAL IVP SCH (16:54)
[2021-03-07] MEDS: Doxycycline 100 MG in 0.9 % Sodium Chloride Mini Bag 100 ML IVPB SCH (16:54)
[2021-03-07] MEDS: MethylPREDNISolone 40 MG/ML VIAL IVP SCH (16:59)
[2021-03-07 17:46] LABS: ABG Base Excess 17 mEq/L (-2 to 3); ABG HCO3 50 mEq/L (21-27); ABG Oxygen Saturation 90 % (95-98); ABG PCO2 95 mmHg (35-45); ABG PH 7.33 pH Units (7.32-7.45); ABG PO2 69 mmHg (85-104); ABG TCO2 > 50 mEq/L (20-26); Blood Gas Modality AVAPS; Blood Gas VT 550 cc
[2021-03-07] MEDS: Insulin LISPRO 300 UNITS/3 ML VIAL SUBQ SCH (17:46)
[2021-03-07 19:57] LABS: Amphetamine Screen,Urine Negative ng/mL (Cutoff=1000); Barbiturate Screen,Urine Negative ng/mL (Cutoff=200); Benzodiazepines Screen,Urine Positive ng/mL (Cutoff=200); Cannabinoid Screen,Urine Negative ng/mL (Cutoff = 50); Cocaine Screen,Urine Negative ng/mL (Cutoff= 300); Opiate Screen,Urine Positive ng/mL (Cutoff=300); Phencyclidine Screen,Urine Negative ng/mL (Cutoff=25)
[2021-03-07] MEDS: Apixaban 5 MG TABLET PO SCH (23:18)
[2021-03-08] MEDS: Insulin LISPRO 300 UNITS/3 ML VIAL SUBQ SCH ×4 (02:11→17:05)
[2021-03-08] MEDS: Ipratropium/Albuterol Neb 3 ML IH SCH ×6 (03:20→23:52)
[2021-03-08] MEDS: MethylPREDNISolone 40 MG/ML VIAL IVP SCH ×2 (06:12→16:55)
[2021-03-08] MEDS: Doxycycline 100 MG in 0.9 % Sodium Chloride Mini Bag 100 ML IVPB SCH (06:12)
[2021-03-08] MEDS: Furosemide 40 MG/4 ML VIAL IVP SCH ×2 (08:03→16:55)
[2021-03-08] MEDS: Apixaban 5 MG TABLET PO SCH ×2 (08:03→20:25)
[2021-03-08 08:07] LABS: Hematocrit 44.6 % (37.5-50.1); Hemoglobin 13.2 g/dL (12.9-16.9); Mean Corpuscular HGB Conc 29.6 g/dL (31.6-35.5); Mean Corpuscular Hemoglobin 26.8 pg (28.0-33.3); Mean Corpuscular Volume 90.7 fL (83.0-100.0); Mean Platelet Volume 9.5 fL (9.4-12.4); Platelet Count 173 K/mcL (140-400); Red Blood Count 4.92 M/mcL (4.19-5.50); Red Cell Distribution Width 17.1 % (11.5-14.5); White Blood Count 3.2 K/mcL (4.3-11.1)
[2021-03-08 08:13] LABS: VBG HCO3 49 mEq/L (21-27); VBG PCO2 90 mmHg (41-51); VBG PH 7.34 pH Units (7.32-7.42); VBG PO2 39 mmHg (25-50)
[2021-03-08 08:31] LABS: BUN/Creatinine Ratio 26 (6-26); Blood Urea Nitrogen 16 mg/dL (6-20); Calcium 8.8 mg/dL (8.6-10.3); Carbon Dioxide 44 mEq/L (23-29); Chloride 90 mEq/L (98-107); Glucose 146 mg/dL (70-105); Osmolality,Calculated 290 (280-300); Potassium 4.1 mEq/L (3.5-5.1); Sodium 138 mEq/L (136-145); eGFR For African Americans > 60 (> 60); eGFR For Non-African Americans > 60 (> 60)
[2021-03-08] MEDS: DilTIAZem CD (24hr) 240 MG CAP.ER.24H PO SCH (10:06)
[2021-03-08] MEDS: Metoprolol XL (24 HR) Succ 50 MG TAB.ER.24H PO SCH (10:06)
[2021-03-08] MEDS: Haloperidol Lactate 5 MG/ML VIAL IVP ONE (12:12)
[2021-03-08] MEDS: ALPRAZolam 1 MG TABLET PO PRN ×2 (13:23→23:05)
[2021-03-08] MEDS: Doxycycline 100 MG CAPSULE PO SCH (20:25)
[2021-03-09] MEDS ORDERED: Haloperidol Lactate 5 MG/ML VIAL IM ONE (03:33)
[2021-03-09] MEDS: Ipratropium/Albuterol Neb 3 ML IH SCH ×6 (03:41→23:47)
[2021-03-09] MEDS: Insulin LISPRO 300 UNITS/3 ML VIAL SUBQ SCH ×5 (03:58→21:37)
[2021-03-09] MEDS: MethylPREDNISolone 40 MG/ML VIAL IVP SCH (04:53)
[2021-03-09 07:10] LABS: Hematocrit 47.2 % (37.5-50.1); Mean Corpuscular HGB Conc 32.2 g/dL (31.6-35.5); Mean Corpuscular Hemoglobin 27.8 pg (28.0-33.3); Mean Corpuscular Volume 86.4 fL (83.0-100.0); Mean Platelet Volume 9.8 fL (9.4-12.4); Platelet Count 231 K/mcL (140-400); Red Blood Count 5.46 M/mcL (4.19-5.50); Red Cell Distribution Width 17.9 % (11.5-14.5)
[2021-03-09 07:13] LABS: VBG HCO3 36 mEq/L (21-27); VBG PCO2 52 mmHg (41-51); VBG PH 7.44 pH Units (7.32-7.42); VBG PO2 79 mmHg (25-50)
[2021-03-09 07:22] LABS: Hemoglobin 15.2 g/dL (12.9-16.9)
[2021-03-09 07:32] LABS: BUN/Creatinine Ratio 33 (6-26); Blood Urea Nitrogen 19 mg/dL (6-20); Calcium 9.3 mg/dL (8.6-10.3); Carbon Dioxide 36 mEq/L (23-29); Chloride 91 mEq/L (98-107); Glucose 129 mg/dL (70-105); Osmolality,Calculated 284 (280-300); Potassium 3.2 mEq/L (3.5-5.1); Sodium 135 mEq/L (136-145); eGFR For African Americans > 60 (> 60); eGFR For Non-African Americans > 60 (> 60)
[2021-03-09] MEDS: Nicotine 7 MG PATCH.TD24 TD SCH ×2 (08:00→08:21)
[2021-03-09] MEDS: Furosemide 40 MG/4 ML VIAL IVP SCH (08:21)
[2021-03-09] MEDS: Metoprolol XL (24 HR) Succ 50 MG TAB.ER.24H PO SCH (08:22)
[2021-03-09] MEDS: ALPRAZolam 1 MG TABLET PO PRN (08:22)
[2021-03-09] MEDS: DilTIAZem CD (24hr) 240 MG CAP.ER.24H PO SCH (08:22)
[2021-03-09] MEDS: Doxycycline 100 MG CAPSULE PO SCH ×2 (08:24→20:35)
[2021-03-09] MEDS: Apixaban 5 MG TABLET PO SCH ×2 (08:24→20:35)
[2021-03-09] MEDS ORDERED: DilTIAZem 50 MG/50 ML IV.SOLN IVC SCH (10:45)
[2021-03-09] MEDS ORDERED: Haloperidol Lactate 5 MG/ML VIAL IVP ONE ×2 (10:46→22:01)
[2021-03-09] MEDS: Haloperidol Lactate 5 MG/ML VIAL IVP ONE (11:40)
[2021-03-09] MEDS: lisinopriL 20 MG TABLET PO SCH (13:22)
[2021-03-09] MEDS: amLODIPine 5 MG TABLET PO SCH (13:22)
[2021-03-09] MEDS: predniSONE 20 MG TABLET PO SCH (13:22)
[2021-03-09] MEDS: ALPRAZolam 1 MG TABLET PO SCH ×2 (15:00→20:35)
[2021-03-09] MEDS: QUEtiapine Fumarate 25 MG TABLET PO SCH (20:35)
[2021-03-10 01:11] LABS: Hematocrit 43.7 % (37.5-50.1); Mean Corpuscular HGB Conc 31.1 g/dL (31.6-35.5); Mean Corpuscular Hemoglobin 26.9 pg (28.0-33.3); Mean Corpuscular Volume 86.5 fL (83.0-100.0); Mean Platelet Volume 9.3 fL (9.4-12.4); Platelet Count 208 K/mcL (140-400); Red Blood Count 5.05 M/mcL (4.19-5.50); Red Cell Distribution Width 18.2 % (11.5-14.5)
[2021-03-10 01:13] LABS: VBG HCO3 35 mEq/L (21-27); VBG PCO2 54 mmHg (41-51); VBG PH 7.41 pH Units (7.32-7.42); VBG PO2 55 mmHg (25-50)
[2021-03-10 01:14] LABS: Hemoglobin 13.6 g/dL (12.9-16.9)
[2021-03-10 01:29] LABS: BUN/Creatinine Ratio 33 (6-26); Blood Urea Nitrogen 25 mg/dL (6-20); Calcium 8.9 mg/dL (8.6-10.3); Carbon Dioxide 36 mEq/L (23-29); Chloride 94 mEq/L (98-107); Glucose 200 mg/dL (70-105); Osmolality,Calculated 290 (280-300); Potassium 3.6 mEq/L (3.5-5.1); Sodium 135 mEq/L (136-145); eGFR For African Americans > 60 (> 60); eGFR For Non-African Americans > 60 (> 60)
[2021-03-10] MEDS: Ipratropium/Albuterol Neb 3 ML IH SCH ×5 (03:52→19:59)
[2021-03-10] MEDS: lisinopriL 20 MG TABLET PO SCH (07:50)
[2021-03-10] MEDS: Doxycycline 100 MG CAPSULE PO SCH ×2 (07:51→20:23)
[2021-03-10] MEDS: Nicotine 7 MG PATCH.TD24 TD SCH (07:51)
[2021-03-10] MEDS: predniSONE 20 MG TABLET PO SCH (07:52)
[2021-03-10] MEDS: Apixaban 5 MG TABLET PO SCH ×2 (07:52→20:22)
[2021-03-10] MEDS: DilTIAZem CD (24hr) 180 MG CAP.ER.24H PO SCH (07:52)
[2021-03-10] MEDS: Furosemide 40 MG TABLET PO SCH (07:53)
[2021-03-10] MEDS: ALPRAZolam 1 MG TABLET PO SCH ×3 (07:53→20:22)
[2021-03-10] MEDS: Metoprolol XL (24 HR) Succ 50 MG TAB.ER.24H PO SCH (07:53)
[2021-03-10] MEDS: amLODIPine 5 MG TABLET PO SCH (07:53)
[2021-03-10] MEDS: Insulin LISPRO 300 UNITS/3 ML VIAL SUBQ SCH ×4 (07:54→20:08)
[2021-03-10] MEDS: QUEtiapine Fumarate 25 MG TABLET PO SCH (20:23)
[2021-03-11] MEDS: Ipratropium/Albuterol Neb 3 ML IH SCH ×5 (00:07→15:56)
[2021-03-11 06:48] VITALS: BP 116/86; PULSE 96; TEMP 98.2
[2021-03-11] MEDS: Insulin LISPRO 300 UNITS/3 ML VIAL SUBQ SCH ×2 (07:30→11:08)
[2021-03-11] MEDS: Doxycycline 100 MG CAPSULE PO SCH (08:48)
[2021-03-11] MEDS: DilTIAZem CD (24hr) 180 MG CAP.ER.24H PO SCH (08:48)
[2021-03-11] MEDS: amLODIPine 5 MG TABLET PO SCH (08:49)
[2021-03-11] MEDS: predniSONE 20 MG TABLET PO SCH (08:49)
[2021-03-11] MEDS: Metoprolol XL (24 HR) Succ 50 MG TAB.ER.24H PO SCH (08:49)
[2021-03-11] MEDS: Nicotine 7 MG PATCH.TD24 TD SCH (08:49)
[2021-03-11] MEDS: Apixaban 5 MG TABLET PO SCH (08:49)
[2021-03-11] MEDS: lisinopriL 20 MG TABLET PO SCH (08:49)
[2021-03-11] MEDS: Furosemide 40 MG TABLET PO SCH (08:49)
[2021-03-11] MEDS: ALPRAZolam 1 MG TABLET PO SCH ×2 (09:07→14:27)
[2021-03-11 11:26] VITALS: O2SAT 99
== END 2021-03-11 16:37 | disposition home or self-care (01) | DRG 291 ==
LOC: 2NENU 09:59 → EMEROOARM 09:59 → SUATTDRO 12:28 → 2NENU 13:52
PROVIDERS: ADMIT Pharmacist; ATTEND Internal Medicine